=== PATIENT | male | born 1980 | race Caucasian/White ===

== ENCOUNTER → 2023-07-07 15:47 | Outpatient (BNVA) | payer SELFPAY | PROVIDERS: Family Provider Nurse Practitioner; PCP Nurse Practitioner; Visit Provider Nurse Practitioner Family | DX: G45.9 Transient cerebral ischemic attack, unspecified (principal); I10 Essential (primary) hypertension; R07.9 Chest pain, unspecified | CPT/HCPCS: 80053; 80061; 84443; 85025; 93005 ==